=== PATIENT | female | born 1930 | race Caucasian/White ===

== ENCOUNTER 2019-01-23 19:22 | Inpatient (IN) | payer OTHER, MEDICARE ==
--- NOTE | 2019-01-23 21:01 | RAD REPORT ---
EXAM DESCRIPTION: CT - Head C Spine Cap Wo Con - 01/23/2019 8:35 pm TECHNIQUE: Computed axial tomography of the head and cervical spine was obtained. Coronal and sagitt al reconstruction was performed Computed axial tomography of the chest, abdomen and pelvis was obtained. Contrast was not requested. All CT scans are performed using dose optimization technique as appropriate and may include automated exposure control or mA/KV adjustment according to patient size. CLINICAL HISTORY: Head and neck injury with chest and abdominal pain status post fall COMPARISON: None FINDINGS: An intracranial bleed is not seen. A 3.5 centimeter low-density area within the left frontal lobe has the appearance of cystic encephalomalacia probably secondary to old infarction. The ventricles are normal in caliber. An extra-axial fluid collection is not noted. . Spondylosis inv olves the cervical spine Fluid within the sinuses/mastoids is not seen. A cervical fracture is not seen. No dislocation is noted. The evaluation of mediastinum, ralph, vessels, solid organs and bowel are limited secondary to the lac k of contrast administration. A mediastinal hematoma is not noted. A pleural effusion is not seen. A lung contusion is not present. The liver,spleen, pancreas, adrenals,kidneys and bladder do not demonstrate a traumatic injury. IMPRESSION: 1. No acute intracranial abnormality is seen. 2. A cervical fracture is not visualized. If the patient continues have symptoms to suggest intracran ial/spinal cord pathology MRI be recommended 3. No traumatic abnormality involving the chest/abdomen/pelvis.
[2019-01-23] MEDS ORDERED: NA CHLORIDE 0.9% 1,000 ML ONE (21:20)
[2019-01-23] MEDS ORDERED: CEFTRIAXONE/SWI 1gm 1 GM/10 ML SYR ONE (21:20)
--- NOTE | 2019-01-23 21:44 | ER ---
Nurse's Notes [facility] Name: Cheri Swift Age: 88 yrs Sex: Female : 1930 Arrival Date: 01/23/2019 Time: 19:23 Bed 18 Private MD: Diagnosis: Weakness;Fall due to bumping against object-found on floor;Dementia in other diseases classified elsewhere;Fever, unspecified;Unspecified kidney failure;Cystitis Presentation: 01/23 19:26 Presenting complaint: EMS states: Pt from [facility], nurse found patient on the floor of tl2 her room. Pt was awake and does not remember falling. Denies pain, but winces when using left leg. Unknown LOC. Pt AOx2, which is baseline. Transition of care: patient was received from another setting of care (long-term care facility), formerly [facility]. Onset of symptoms was January 23, 2019. Risk Assessment: Do you want to hurt yourself or someone else? Patient reports no desire to harm self or others. Initial Sepsis Screen: Does the patient meet any 2 criteria? HR > 90 bpm. No. Patient's initial sepsis screen is negative. Does the patient have a suspected source of infection? No. Patient's initial sepsis screen is negative. Care prior to arrival: None. 19:26 Method Of Arrival: EMS: [facility] tl2 19:26 Acuity: ALFREDO 3 tl2 Historical: - Allergies: 19:35 ambien; tl2 19:35 Bactrim; tl2 19:35 duratuss; tl2 19:35 Lamisil; tl2 19:35 Lisinopril; tl2 19:35 metformin; tl2 19:35 Requip; tl2 19:35 Sulfa (Sulfonamide Antibiotics); tl2 19:35 Zithromax; tl2 19:35 Vitamin D; tl2 - Home Meds: 19:35 aspirin 81 mg Oral chew 1 tab once daily [Active]; clopidogrel 75 mg oral tab 1 tab tl2 once daily [Active]; docusate calcium 240 mg Oral cap 1 cap 2 times per day [Active]; furosemide 20 mg Oral tab 1 tab once daily [Active]; lovastatin 20 mg Oral tab 1 tab once daily [Active]; meclizine 25 mg Oral tab 1 tab 2 times per day [Active]; metoprolol succinate 50 mg oral Tb24 1 tab once daily [Active]; potassium chloride 10 mEq Oral cpER 1 cap once daily [Active]; Vesicare 10 mg oral tab 1 tab once daily [Active]; - PMHx: 19:35 Dementia; TIA; Diabetes - NIDDM; kidney disease; tl2 - Immunization history:: Adult Immunizations up to date. - Social history:: Smoking status: Patient/guardian denies using tobacco. - Ebola Screening: : No symptoms or risks identified at this time. Screenin:37 Abuse screen: Denies threats or abuse. Nutritional screening: No deficits noted. tl2 Tuberculosis screening: No symptoms or risk factors identified. Fall Risk Fall in past 12 months (25 points). Secondary diagnosis (15 points) dementia, TIA, Gait- Weak (10 pts.). Mental Status- Overestimates/Forgets Limitations (15 pts.). Assessment: 19:35 General: Appears in no apparent distress. comfortable, Behavior is calm, cooperative. tl2 Pain: Complains of pain in left leg. Neuro: Level of Consciousness is awake, alert, confused, Oriented to person, place. Cardiovascular: Denies chest pain. Respiratory: Airway is patent Respiratory effort is even, unlabored, Respiratory pattern is regular, symmetrical. GI: No signs and/or symptoms were reported involving the gastrointestinal system. Abdomen is round distended. : No signs and/or symptoms were reported regarding the genitourinary system. Derm: Skin is pink, warm \T\ dry. Injury Description: Bruise sustained to left tovar. 20:15 Reassessment: awaiting lab to draw blood tests, delayed by imaging. tl2 21:00 Reassessment: Patient appears in no apparent distress at this time. No changes from tl2 previously documented assessment. Patient and/or family updated on plan of care and expected duration. Pain level reassessed. 22:11 Reassessment: Patient appears in no apparent distress at this time. Patient and/or tl2 family updated on plan of care and expected duration. Pain level reassessed. awaiting further orders and lab results. 23:19 Reassessment: awaiting admission orders, pt appears to be sleeping, RR even and tl2 unlabored. 01/24 00:59 Reassessment: Patient appears in no apparent distress at this time. Patient and/or tl2 family updated on plan of care and expected duration. Pain level reassessed. pt stable for transport to floor. Vital Signs: 01/23 19:35 BP 145 / 72; Pulse 103; Resp 18; Temp 100.1(O); Pulse Ox 98% on R/A; Weight 72.57 kg; tl2 Height 5 ft. 4 in. (162.56 cm); Pain 0/10; 21:20 BP 160 / 88; Pulse 102; Resp 20; Temp 99(O); Pulse Ox 95% on R/A; tl2 23:12 BP 142 / 80; Pulse 84; Resp 20; Pulse Ox 98% on R/A; tl2 23:57 BP 140 / 106; Pulse 104; Resp 20; Temp 98.6(O); Pulse Ox 96% on R/A; tl2 01/24 00:59 BP 135 / 75; Pulse 94; Resp 20; Pulse Ox 95% on R/A; tl2 01/23 19:35 Body Mass Index 27.46 (72.57 kg, 162.56 cm) tl2 ED Course: 01/23 19:23 Patient arrived in ED. ds1 19:27 Triage completed. tl2 19:35 Arm band placed on right wrist. tl2 19:37 Jose Hilton MD is Attending Physician. aura 19:37 Patient has correct armband on for positive identification. Bed in low position. Call tl2 light in reach. Side rails up X2. 19:59 Inserted saline lock: 22 gauge in right forearm, using aseptic technique. tl2 20:[address] via stretcher. vm2 20:32 CT completed. Patient tolerated procedure well. Patient moved back from CT. vm2 20:35 CT Traumagram (Head C Spine CAP wo con) In Process Unspecified. EDMS 20:36 Ami Osborne, RN is Primary Nurse. tl2 21:12 XRAY Chest (1 view) In Process Unspecified. EDMS 21:12 Femur Left XRAY In Process Unspecified. EDMS 21:12 Tib Fib Left XRAY In Process Unspecified. EDMS 21:42 Willian Simmons MD is Hospitalizing Provider. aura 21:55 Camarena cath inserted, using sterile technique, 16 Fr., by de, balloon inflated, to tl2 gravity drainage, urine specimen collected. returned cloudy urine. Patient tolerated well. 22:28 Flu Sent. tl2 01/24 00:59 No provider procedures requiring assistance completed. Patient admitted, IV remains in tl2 place. Administered Medications: 01/23 21:51 Drug: NS 0.9% 500 ml Route: IV; Rate: bolus; Site: right forearm; tl2 22:22 Follow up: IV Status: Completed infusion; IV Intake: 500ml tl2 21:51 Drug: Rocephin - (cefTRIAXone) 1 grams Route: IVPB; Infused Over: 30 mins; Site: right tl2 forearm; 22:00 Follow up: IV Status: Completed infusion; IV Intake: 10ml tl2 22:21 Drug: NS 0.9% 1000 ml Route: IV; Rate: 125 ml/hr; Site: right forearm; tl2 01/24 01:01 Follow up: IV Status: Infusion continued upon admission tl2 Intake: 01/23 22:00 IV: 10ml; Total: 10ml. tl2 22:22 IV: 500ml; Total: 510ml. tl2 Outcome: 21:43 Decision to Hospitalize by Provider. aura 01/24 00:59 Admitted to Med/surg accompanied by tech, via stretcher, room 211, with chart, Report tl2 called to JOHNNIE De La Cruz Condition: stable Discharge instructions given to patient, family, Instructed on the need for admit. 01:02 Patient left the ED. tl2 Signatures: Dispatcher [employer] EDJose Bradley MD MD cha Sanford, Demi ds1 Ami Osborne RN RN 2 Anna Chou 2 Corrections: (The following items were deleted from the chart) 01/23 19:29 19:26 Initial Sepsis Screen: Does the patient meet any 2 criteria? No. Patient's tl2 initial sepsis screen is negative. Does the patient have a suspected source of infection? No. Patient's initial sepsis screen is negative. tl2
--- NOTE | 2019-01-23 21:44 | RAD REPORT ---
EXAM DESCRIPTION: RAD - Chest Single View - 01/23/2019 9:12 pm CLINICAL HISTORY: COUGH Chest pain. COMPARISON: No comparisons FINDINGS: Portable technique limits examination quality. The lungs are grossly clear. The heart is normal in size. No displaced fractures. IMPRESSION: No acute intrathoracic process suspected.
--- NOTE | 2019-01-23 21:44 | EDPHYS ---
Physician Documentation [facility] Name: Cheri Swift Age: 88 yrs Sex: Female : 1930 Arrival Date: 01/23/2019 Time: 19:23 Bed 18 Private MD: ED Physician Jose Hilton HPI: 01/23 20:15 This 88 yrs old Female presents to ER via EMS with complaints of Fall Injury. aura 20:15 Details of fall: The patient fell from an upright position, while standing. Onset: The aura symptoms/episode began/occurred just prior to arrival. Associated injuries: The patient sustained left leg, painful injury. Severity of symptoms: At their worst the symptoms were mild, in the emergency department the symptoms are unchanged. Historical: - Allergies: 19:35 ambien; tl2 19:35 Bactrim; tl2 19:35 duratuss; tl2 19:35 Lamisil; tl2 19:35 Lisinopril; tl2 19:35 metformin; tl2 19:35 Requip; tl2 19:35 Sulfa (Sulfonamide Antibiotics); tl2 19:35 Zithromax; tl2 19:35 Vitamin D; tl2 - Home Meds: 19:35 aspirin 81 mg Oral chew 1 tab once daily [Active]; clopidogrel 75 mg oral tab 1 tab tl2 once daily [Active]; docusate calcium 240 mg Oral cap 1 cap 2 times per day [Active]; furosemide 20 mg Oral tab 1 tab once daily [Active]; lovastatin 20 mg Oral tab 1 tab once daily [Active]; meclizine 25 mg Oral tab 1 tab 2 times per day [Active]; metoprolol succinate 50 mg oral Tb24 1 tab once daily [Active]; potassium chloride 10 mEq Oral cpER 1 cap once daily [Active]; Vesicare 10 mg oral tab 1 tab once daily [Active]; - PMHx: 19:35 Dementia; TIA; Diabetes - NIDDM; kidney disease; tl2 - Immunization history:: Adult Immunizations up to date. - Social history:: Smoking status: Patient/guardian denies using tobacco. - Ebola Screening: : No symptoms or risks identified at this time. ROS: 20:16 Eyes: Negative for injury, pain, redness, and discharge, ENT: Negative for injury, aura pain, and discharge, Neck: Negative for injury, pain, and swelling, Cardiovascular: Negative for chest pain, palpitations, and edema, Respiratory: Negative for shortness of breath, cough, wheezing, and pleuritic chest pain, Abdomen/GI: Negative for abdominal pain, nausea, vomiting, diarrhea, and constipation, Back: Negative for injury and pain, : Negative for injury, bleeding, discharge, and swelling, Skin: Negative for injury, rash, and discoloration, Neuro: Negative for headache, weakness, numbness, tingling, and seizure, Psych: Negative for depression, anxiety, suicide ideation, homicidal ideation, and hallucinations, Allergy/Immunology: Negative for hives, rash, and allergies, Endocrine: Negative for neck swelling, polydipsia, polyuria, polyphagia, and marked weight changes, Hematologic/Lymphatic: Negative for swollen nodes, abnormal bleeding, and unusual bruising. 20:16 Constitutional: Positive for fever. 20:16 MS/extremity: Positive for decreased range of motion, pain, of the left leg. Exam: 20:16 Constitutional: This is a well developed, well nourished patient who is awake, alert, aura and in no acute distress. Head/Face: Normocephalic, atraumatic. Eyes: Pupils equal round and reactive to light, extra-ocular motions intact. Lids and lashes normal. Conjunctiva and sclera are non-icteric and not injected. Cornea within normal limits. Periorbital areas with no swelling, redness, or edema. ENT: Nares patent. No nasal discharge, no septal abnormalities noted. Tympanic membranes are normal and external auditory canals are clear. Oropharynx with no redness, swelling, or masses, exudates, or evidence of obstruction, uvula midline. Mucous membranes moist. Neck: Trachea midline, no thyromegaly or masses palpated, and no cervical lymphadenopathy. Supple, full range of motion without nuchal rigidity, or vertebral point tenderness. No Meningismus. Chest/axilla: Normal chest wall appearance and motion. Nontender with no deformity. No lesions are appreciated. Cardiovascular: Regular rate and rhythm with a normal S1 and S2. No gallops, murmurs, or rubs. Normal PMI, no JVD. No pulse deficits. Respiratory: Lungs have equal breath sounds bilaterally, clear to auscultation and percussion. No rales, rhonchi or wheezes noted. No increased work of breathing, no retractions or nasal flaring. Abdomen/GI: Soft, non-tender, with normal bowel sounds. No distension or tympany. No guarding or rebound. No evidence of tenderness throughout. Back: No spinal tenderness. No costovertebral tenderness. Full range of motion. Skin: Warm, dry with normal turgor. Normal color with no rashes, no lesions, and no evidence of cellulitis. Neuro: Awake and alert, GCS 15, oriented to person, place, time, and situation. Cranial nerves II-XII grossly intact. Motor strength 5/5 in all extremities. Sensory grossly intact. Cerebellar exam normal. Normal gait. Psych: Awake, alert, with orientation to person, place and time. Behavior, mood, and affect are within normal limits. 20:16 Musculoskeletal/extremity: ROM: limited active range of motion, limited passive range of motion, Circulation is intact in all extremities. Sensation intact. Compartment Syndrome exam of affected extremity: is normal. Weight bearing: is unable to bear weight, DVT Exam: no swelling, no tenderness, negative Homans' sign noted on exam, no appreciated bluish discoloration, no erythema, no increased warmth, pain. Vital Signs: 19:35 BP 145 / 72; Pulse 103; Resp 18; Temp 100.1(O); Pulse Ox 98% on R/A; Weight 72.57 kg; tl2 Height 5 ft. 4 in. (162.56 cm); Pain 0/10; 21:20 BP 160 / 88; Pulse 102; Resp 20; Temp 99(O); Pulse Ox 95% on R/A; tl2 23:12 BP 142 / 80; Pulse 84; Resp 20; Pulse Ox 98% on R/A; tl2 23:57 BP 140 / 106; Pulse 104; Resp 20; Temp 98.6(O); Pulse Ox 96% on R/A; tl2 01/24 00:59 BP 135 / 75; Pulse 94; Resp 20; Pulse Ox 95% on R/A; tl2 01/23 19:35 Body Mass Index 27.46 (72.57 kg, 162.56 cm) tl2 MDM: 01/23 19:37 Patient medically screened. [facility] 20:18 Data reviewed: vital signs, nurses notes, lab test result(s), EKG, radiologic studies, [facility] CT scan, plain films. 01/23 20:14 Order name: Basic Metabolic Panel [facility] 01/23 20:14 Order name: CBC with Diff [facility] 01/23 20:14 Order name: LFT's [facility] 01/23 20:14 Order name: Magnesium [facility] 01/23 20:14 Order name: NT PRO-BNP [facility] 01/23 20:14 Order name: PT-INR; Complete Time: 22:23 [facility] 01/23 20:14 Order name: Troponin (emerg Dept Use Only) [facility] 01/23 20:14 Order name: Lipase [facility] 01/23 20:14 Order name: Urine Culture [facility] 01/23 20:14 Order name: Blood Culture Adult (2) [facility] 01/23 20:14 Order name: Procalcitonin [facility] 01/23 20:14 Order name: Lactate; Complete Time: 22:23 [facility] 01/23 20:14 Order name: Basic Metabolic Panel [facility] 01/23 20:14 Order name: CBC with Automated Diff [facility] 01/23 20:14 Order name: XRAY Chest (1 view); Complete Time: 22:23 [facility] 01/23 20:14 Order name: EKG; Complete Time: 20:15 [facility] 01/23 20:14 Order name: CT Traumagram (Head C Spine CAP wo con); Complete Time: 21:36 [facility] 01/23 20:14 Order name: Femur Left XRAY; Complete Time: 22:23 [facility] 01/23 20:14 Order name: Tib Fib Left XRAY; Complete Time: 22:23 [facility] 01/23 20:14 Order name: Liver (Hepatic) Function [facility] 01/23 21:37 Order name: Flu [facility] 01/23 22:11 Order name: Urine Dipstick--Ancillary (enter results); Complete Time: 22:23 [facility] 01/23 22:20 Order name: Creatine Phosphokinase [facility] 01/23 22:20 Order name: CKMB Creatine Kinase MB [facility] 01/23 23:03 Order name: CBC Smear Scan [facility] 01/23 20:14 Order name: Cardiac monitoring; Complete Time: 20:37 [facility] 01/23 20:14 Order name: EKG - Nurse/Tech; Complete Time: 20:38 [facility] 01/23 20:14 Order name: IV Saline Lock; Complete Time: 20:38 [facility] 01/23 20:14 Order name: Labs collected and sent; Complete Time: 21:52 [facility] 01/23 20:14 Order name: O2 Per Protocol; Complete Time: 20:38 [facility] 01/23 20:14 Order name: O2 Sat Monitoring; Complete Time: 20:38 [facility] 01/23 20:14 Order name: Urine Dipstick-Ancillary (obtain specimen); Complete Time: 21:52 [facility] 01/23 21:11 Order name: Camarena; Complete Time: 21:51 [facility] Administered Medications: 21:51 Drug: NS 0.9% 500 ml Route: IV; Rate: bolus; Site: right forearm; tl2 22:22 Follow up: IV Status: Completed infusion; IV Intake: 500ml tl2 21:51 Drug: Rocephin - (cefTRIAXone) 1 grams Route: IVPB; Infused Over: 30 mins; Site: right tl2 forearm; 22:00 Follow up: IV Status: Completed infusion; IV Intake: 10ml tl2 22:21 Drug: NS 0.9% 1000 ml Route: IV; Rate: 125 ml/hr; Site: right forearm; tl2 01/24 01:01 Follow up: IV Status: Infusion continued upon admission tl2 Disposition: 01/23/19 21:43 Hospitalization ordered by Willian Simmons for Inpatient Admission. Preliminary diagnosis are Weakness, Fall due to bumping against object - found on floor, Dementia in other diseases classified elsewhere, Fever, unspecified, Unspecified kidney failure, Cystitis. - Bed requested for Telemetry/MedSurg (Inpatient). - Status is Inpatient Admission. tl2 - Condition is Fair. - Problem is new. - Symptoms have improved. UTI on Admission? Yes Signatures: Dispatcher [employer] EDIA Jose Hilton MD MD cha Garcia, Cindy, RN RN Ami Osborne RN RN tl2 Corrections: (The following items were deleted from the chart) 01/23 22:20 21:42 CREATINE PHOSPHOKINASE+C.LAB.BRZ ordered. [facility] EDIA 22:20 21:42 CKMB+C.LAB.BRZ ordered. [facility] 22:24 21:43 Hospitalization Ordered by Willian Simmons MD for Inpatient Admission. Preliminary [facility] diagnosis is Weakness; Fall due to bumping against object - found on floor; Dementia in other diseases classified elsewhere; Fever, unspecified. Bed requested for Telemetry/MedSurg (Inpatient). Status is Inpatient Admission. Condition is Fair. Problem is new. Symptoms have improved. UTI on Admission? No. [facility] 23:46 22:24 01/23/2019 21:43 Hospitalization Ordered by Willian Simmons MD for Inpatient cg Admission. Preliminary diagnosis is Weakness; Fall due to bumping against object - found on floor; Dementia in other diseases classified elsewhere; Fever, unspecified; Unspecified kidney failure; Cystitis. Bed requested for Telemetry/MedSurg (Inpatient). Status is Inpatient Admission. Condition is Fair. Problem is new. Symptoms have improved. UTI on Admission? Yes. [facility] 01/24 01:02 05/ 23:46 01/23/2019 21:43 Hospitalization Ordered by Willian Smimons MD for Inpatient tl2 Admission. Preliminary diagnosis is Weakness; Fall due to bumping against object - found on floor; Dementia in other diseases classified elsewhere; Fever, unspecified; Unspecified kidney failure; Cystitis. Bed requested for Telemetry/MedSurg (Inpatient). Status is Inpatient Admission. Condition is Fair. Problem is new. Symptoms have improved. UTI on Admission? Yes. cg
--- NOTE | 2019-01-23 21:44 | RAD REPORT ---
EXAM DESCRIPTION: RAD - Femur Left - 01/23/2019 9:13 pm CLINICAL HISTORY: PAIN COMPARISON: No comparisons FINDINGS: Prominent degenerative changes seen involving the left hip. No evidence of fracture or dis location. No aggressive marrow pattern.
--- NOTE | 2019-01-23 21:45 | RAD REPORT ---
EXAM DESCRIPTION: RAD - Tib Fib Left - 01/23/2019 9:14 pm CLINICAL HISTORY: PAIN COMPARISON: No comparisons FINDINGS: An acute fracture or dislocation is not seen. Small left knee joint effusion.
[2019-01-23 21:47] LABS: Absolute Lymphocytes (CBC) 0.8 K/uL (0.7-4.9); Absolute Monocytes 0.7 K/uL (0.1-1.3); Absolute Neutrophil 9.3 K/uL (1.8-8.0); Basophils % 0.3 % (0-1.3); Eosinophils % 0.2 % (0-4.4); Hematocrit 34.4 % (36.0-45.0); Monocytes % 6.4 % (3.3-12.3); RBC Red Blood Cell Count 3.55 M/uL (3.86-4.86)
[2019-01-23 21:51] LABS: Protime INR 1.01
[2019-01-23 22:08] LABS: ALT/SGPT 44 U/L (12-78); AST/SGOT 120 U/L (15-37); Albumin 3.3 g/dL (3.4-5.0); Alkaline Phosphatase 79 U/L (45-117); BUN Blood Urea Nitrogen 29 mg/dL (7-18); Bicarbonate 25 mmol/L (21-32); Bilirubin Direct < 0.1 mg/dL (0-0.2); Bilirubin Total 0.3 mg/dL (0.2-1.0); Glucose Level 207 mg/dL (74-106); Lipase 76 U/L (73-393); Magnesium 2.2 mg/dL (1.8-2.4); NT PRO-BNP 3043 pg/mL (<450); Protein, Total 7.4 g/dL (6.4-8.2); Sodium Level 131 mmol/L (136-145); Troponin (Emerg Dept Use Only) 0.11 ng/mL (0.0-0.045)
[2019-01-23 22:17] LABS: Urine Blood 2+ (NEG); Urine Glucose 2+ (NEG); Urine Protein 1+ (NEG)
[2019-01-23 22:54] LABS: Creatine Phosphokinase 4079 U/L (26-192)
[2019-01-23 23:03] LABS: Blood Morphology Comment NOT SEEN (NOT SEEN); Platelet Estimate ADEQ; Urine White Blood Cell Casts OK
--- NOTE | 2019-01-23 23:05 | P.HP ---
Certification for Inpatient Patient admitted to: Inpatient With expected LOS: >2 Midnights Practitioner: I am a practitioner with admitting privileges, knowledge of patient current condition, hospital course, and medical plan of care. Services: Services provided to patient in accordance with Admission requirements found in Title 42 Section 412.3 of the Code of Federal Regulations Patient History Date of Service: 01/23/19 Reason for admission: UTI, fall History of Present Illness: Ms Swift is an 88 years old woman with history of dementia, HTN, DM II, who is resident of an assisted living facility. She was found on the floor by the nurse. Unknown if the patient had LOC. She was febrile, and was more confused than usual. The patient does not remember falling today, No cough, SOB, chest pain, nausea, vomiting or diarrhea. At arrival she was febrile 100.1F, Lab work shows normal WBC count, however, total CK is elevated, consistent with mild rhabdomyolisis, lactate normal but procalcitonine elevated. CXR shows no acute infiltrate, UA abnormal consistent with UTI. Home medications list reviewed: Yes - Past Medical/Surgical History -: Dementia -: TIA -: NIDDM Past Surgical History: Reviewed- Non-Contributory - Social History Smoking Status: Unknown if ever smoked Alcohol use: No CD- Drugs: No Place of Residence: [facility] Review of Systems 10-point ROS is otherwise unremarkable Physical Examination - Physical Exam General: In no apparent distress, Demented, Confused HEENT: Atraumatic, PERRLA, Mucous membr. moist/pink, EOMI, Sclerae nonicteric Neck: Supple, 2+ carotid pulse no bruit, No LAD, Without JVD or thyroid abnormality Respiratory: Clear to auscultation bilaterally, Normal air movement Cardiovascular: Regular rate/rhythm, Normal S1 S2 Gastrointestinal: Normal bowel sounds, No tenderness Musculoskeletal: No tenderness Integumentary: No rashes Neurological: Normal speech, Normal strength at 5/5 x4 extr, Normal tone, Normal affect Lymphatics: No axilla or inguinal lymphadenopathy - Studies Laboratory Data (last 24 hrs) 01/23/19 21:29: PT 11.9, INR 1.01 01/23/19 21:29: WBC 10.8, Hgb 11.7 L, Hct 34.4 L, Plt Count 192 01/23/19 21:29: Sodium 131 L, Potassium 4.0, BUN 29 H, Creatinine 1.79 H, Glucose 207 H, Magnesium 2.2, Total Bilirubin 0.3, AST 120 H, ALT 44, Alkaline Phosphatase 79, Lipase 76 Microbiology Data (last 24 hrs): 01/23/19 21:58 Nasopharnyx Influenza Type A Antigen Screen - Final 01/23/19 21:58 Nasopharnyx Influenza Type B Antigen Screen - Final Assessment and Plan - Problems (Diagnosis) (1) Acute encephalopathy Current Visit: Yes Status: Acute (2) UTI (urinary tract infection) Current Visit: Yes Status: Acute Qualifiers: Urinary tract infection type: acute cystitis Hematuria presence: without hematuria Qualified Code(s): N30.00 - Acute cystitis without hematuria (3) Dementia Current Visit: Yes Status: Acute Qualifiers: Dementia type: Alzheimer's disease Alzheimer's disease onset: unspecified onset Dementia behavioral disturbance: without behavioral disturbance Qualified Code(s): G30.9 - Alzheimer's disease, unspecified; F02.80 - Dementia in other diseases classified elsewhere without behavioral disturbance (4) HTN (hypertension) Current Visit: Yes Status: Acute Qualifiers: Hypertension type: essential hypertension Qualified Code(s): I10 - Essential (primary) hypertension (5) Diabetes mellitus Current Visit: Yes Status: Acute Qualifiers: Diabetes mellitus type: type 2 Diabetes mellitus care home insulin use: with serology technician use Diabetes mellitus complication status: with unspecified complications Qualified Code(s): E11.8 - Type 2 diabetes mellitus with unspecified complications; Z79.4 - jail (current) use of insulin (6) Rhabdomyolysis Current Visit: Yes Status: Acute Qualifiers: Rhabdomyolysis type: traumatic Encounter type: initial encounter Qualified Code(s): T79.6XXA - Traumatic ischemia of muscle, initial encounter - Plan The patietnt will be admitted to the hospital due to acute encephalopathy, fall , UTI, and rhabdo. Will continue with IV fluids, empiric treatment with Rocephin. - Advance Directives Does patient have a Living Will: No Does patient have a Durable POA for Healthcare: No - Code Status/Comfort Care Code Status Assessed: Yes Code Status: Full Code
[2019-01-24] MEDS ORDERED: ONDANSETRON 4 MG/2 ML VIAL IV PRN (00:21)
[2019-01-24] MEDS ORDERED: ACETAMINOPHEN 500 MG TAB PO PRN (00:21)
[2019-01-24] MEDS: NA CHLORIDE 0.9% 1,000 ML IV SCH ×4 (01:11→21:51)
[2019-01-24 01:25] VITALS: BMI 24.5
[2019-01-24 06:35] LABS: Absolute Lymphocytes (CBC) 1.6 K/uL (0.7-4.9); Absolute Neutrophil 7.7 K/uL (1.8-8.0); Basophils % 0.6 % (0-1.3); Eosinophils % 0.3 % (0-4.4); Hematocrit 33.1 % (36.0-45.0); MPV 7.9 fL (7.6-11.3); Monocytes % 9.8 % (3.3-12.3); RBC Red Blood Cell Count 3.39 M/uL (3.86-4.86)
[2019-01-24 06:36] LABS: Potassium 4.6 mmol/L (3.5-5.1)
--- NOTE | 2019-01-24 07:13 | EKG ---
Test Date: 2019-01-23 Test Time: 20:00:20 Marketing Sales Representative: JOE MEASUREMENT RESULTS: Intervals: Rate: 104 OR: 138 QRSD: 80 QT: 338 QTc: 444 [place]: P: 85 OR: 138 QRS: 36 T: 83 INTERPRETIVE STATEMENTS: Sinus tachycardia Otherwise normal ECG No previous ECG available for comparison Electronically Signed On 01-24-19 07:12:23 CDT by Don Long
[2019-01-24] MEDS ORDERED: PNEUMOCOCCAL VACCINE 0.5 ML IMVAC ONE (08:00)
[2019-01-24] MEDS ORDERED: CEFTRIAXONE 1 GM/NS 50 ML 1 GM/50 ML BAG IV SCH (09:00)
[2019-01-24] MEDS ORDERED: MECLIZINE HCL 12.5 MG TAB PO PRN (09:00)
[2019-01-24] MEDS: INSULIN -REGULAR HUMAN 50 UNIT/0.5 ML ML SQ SCH ×4 (09:26→21:46)
[2019-01-24] MEDS: CEFTRIAXONE/SWI 1gm 1 GM/10 ML SYR IV SCH (09:27)
[2019-01-24] MEDS: DOCUSATE NA 100 MG CAP PO SCH (09:27)
[2019-01-24] MEDS: SOLIFENACIN SUCCIN 5 MG TAB PO SCH (09:27)
[2019-01-24] MEDS: METOPROLOL XL 50 MG TAB PO SCH (09:28)
[2019-01-24] MEDS: CLOPIDOGREL 75 MG TABLET PO SCH (09:28)
[2019-01-24] MEDS: VITAMIN D 1000 UNIT TAB PO SCH (09:28)
[2019-01-24] MEDS: ASPIRIN EC 81 MG TAB PO SCH (09:28)
[2019-01-24] MEDS: POLYVINYL ALCOHOL 1.4% 15 ML OPTH SCH ×2 (09:30→21:49)
--- NOTE | 2019-01-24 13:23 | P.CNS ---
Date of Consult: 01/24/19 Reason for Consult: CORINE Chief Complaint: UTI, fall History of Present Illness: pt is unable to provide detailed Hx, Hx obtained from chart An 88 years old woman with history of dementia, HTN, DM II, pt sent from assisted living facility after she was found on the ground unknown if lost consciouss no nausea vomiting , diarrhea or constipation, chest pain or palpitation Allergies azithromycin [From Zithromax] Allergy (Verified 01/24/19 00:20) Hives cholecalciferol (vitamin D3) [From Vitamin D3] Allergy (Verified 01/24/19 00:20) Itching dextromethorphan Allergy (Verified 01/24/19 03:00) Itching/Hives/Rash guaifenesin Allergy (Verified 01/24/19 03:00) Itching/Hives/Rash hydrocodone Allergy (Verified 01/24/19 03:00) Itching/Hives/Rash lisinopril Allergy (Verified 01/24/19 00:20) Anaphylaxis metformin Allergy (Verified 01/24/19 00:20) Hives ropinirole [From Requip] Allergy (Verified 01/24/19 00:20) Hives Sulfa (Sulfonamide Antibiotics) Allergy (Verified 01/24/19 00:20) Hives sulfamethoxazole [From Bactrim] Allergy (Verified 01/24/19 00:20) Hives terbinafine [From Lamisil] Allergy (Verified 01/24/19 00:20) Hives trimethoprim [From Bactrim] Allergy (Verified 01/24/19 00:20) Hives zolpidem [From Ambien] Allergy (Verified 01/24/19 00:20) Hives duratuss Allergy (Uncoded 01/24/19 00:20) Hives Home Medications: Acetaminophen 1 tab PO QID PRN 01/24/19 Aspirin [Aspirin EC 81 MG] 1 tab PO DAILY 01/24/19 Carboxymethylcellulos/Glycerin [Refresh Optive Eye Drops] 1 drop EACH EYE BID Cholecalciferol (Vitamin D3) [Vitamin D3] 1 cap PO DAILY 01/24/19 Clopidogrel Bisulfate [Plavix*] 1 tab PO DAILY 01/24/19 Docusate Calcium 240 mg PO BID 01/24/19 Furosemide [Lasix*] 1 tab PO DAILY 01/24/19 Lovastatin 1 tab PO DAILY 01/24/19 Meclizine HCl 1 tab PO BID 01/24/19 Metoprolol Succinate 1 tab PO DAILY 01/24/19 Potassium Chloride 1 tab PO DAILY 01/24/19 Solifenacin Succinate [Vesicare] 10 mg PO DAILY 01/24/19 - Past Medical/Surgical History Diabetic: Yes -: Dementia -: TIA -: NIDDM -: CKD ST 3 -: RLS -: ANEMIA -: CEREBRAL ATHEROSCLEROSIS -: HTN -: MIXED HLD -: CORONARY ATHEROSCLEROSIS -: CVA - Social History Alcohol use: No CD- Drugs: No Caffeine use: No Place of Residence: Intermediate Physical Examination Temp Pulse Resp BP Pulse Ox 97.7 F 95 H 17 120/59 L 96 01/24/19 12:00 01/24/19 12:00 01/24/19 12:00 01/24/19 12:00 01/24/19 12:00 General: In no apparent distress HEENT: Atraumatic, Other (Dry mouth ) Respiratory: Clear to auscultation bilaterally, Normal air movement Cardiovascular: No edema, Regular rate/rhythm, Normal S1 S2 Gastrointestinal: Normal bowel sounds, Soft and benign Integumentary: No rashes Laboratory Data (last 24 hrs) 01/23/19 21:29: PT 11.9, INR 1.01 01/23/19 21:29: WBC 10.8, Hgb 11.7 L, Hct 34.4 L, Plt Count 192 01/23/19 21:29: Sodium 131 L, Potassium 4.0, BUN 29 H, Creatinine 1.79 H, Glucose 207 H, Magnesium 2.2, Total Bilirubin 0.3, AST 120 H, ALT 44, Alkaline Phosphatase 79, Lipase 76 - Problems (1) CORINE (acute kidney injury) Current Visit: Yes Status: Acute (2) Rhabdomyolysis Current Visit: Yes Status: Acute Qualifiers: Rhabdomyolysis type: traumatic Encounter type: initial encounter Qualified Code(s): T79.6XXA - Traumatic ischemia of muscle, initial encounter (3) UTI (urinary tract infection) Current Visit: Yes Status: Acute Qualifiers: Urinary tract infection type: acute cystitis Hematuria presence: without hematuria Qualified Code(s): N30.00 - Acute cystitis without hematuria Conclusions/Impression: CORINE likely due to poor oral intake +/_ diuresis +/- rhabdo improved on IVF UA +1 prot and Bld will order renal U S previous W/u RISHI, ANCA , RPR -ve cont IVF rhabdo Cont IVF Dementia will order TSH and b12 DM as per PCP HTN controlled UTI cont Abx f/u culture results
--- NOTE | 2019-01-24 13:33 | P.PN ---
Subjective Date of Service: 01/24/19 Primary Care Provider: [facility] Chief Complaint: UTI, fall Subjective: Doing well, Demented Physical Examination - Vital Signs Temperature: 97.7 F Blood Pressure: 120/59 Pulse: 95 Respirations: 17 Pulse Ox (%): 96 - Physical Exam General: Alert, In no apparent distress, Demented HEENT: Atraumatic Neck: Supple Respiratory: Clear to auscultation bilaterally, Normal air movement Cardiovascular: Normal pulses, Regular rate/rhythm Gastrointestinal: Normal bowel sounds, Soft and benign, Non-distended Musculoskeletal: No erythema, No tenderness, No warmth Neurological: Normal speech, Normal strength at 5/5 x4 extr, Normal tone, Normal affect - Studies Laboratory Data (last 24 hrs) 01/23/19 21:29: PT 11.9, INR 1.01 01/23/19 21:29: WBC 10.8, Hgb 11.7 L, Hct 34.4 L, Plt Count 192 01/23/19 21:29: Sodium 131 L, Potassium 4.0, BUN 29 H, Creatinine 1.79 H, Glucose 207 H, Magnesium 2.2, Total Bilirubin 0.3, AST 120 H, ALT 44, Alkaline Phosphatase 79, Lipase 76 Microbiology Data (last 24 hrs): 01/23/19 21:29 Blood - Blood Anaerobic Blood Culture - Final 01/23/19 21:35 Blood - Blood Anaerobic Blood Culture - Final 01/23/19 21:58 Nasopharnyx Influenza Type A Antigen Screen - Final 01/23/19 21:58 Nasopharnyx Influenza Type B Antigen Screen - Final Medications List Reviewed: Yes Assessment & Plan Discharge Plan: Other (Assisted living facility) Plan to discharge in: 48 Hours Physician Review Additional Text: Impression: UTI complicated with acute on chronic renal disease with rhabdomyolysis Fall with rhabdomyolysis Diabetes mellitus type 2 Hypertension Dementia History of TIA Hyperlipidemia Plan: UTI complicated with acute on chronic renal disease with rhabdomyolysis: Continue with IV fluids. Will check renal ultrasound. Nephrology consulted. Urine culture and blood culture pending. Await final results. Will have physical therapy assess ambulation. Anticipate discharge in the next 48 hr back to assisted living or skilled placement. Fall with rhabdomyolysis: Will have physical therapy assess ambulation. Anticipate discharge back to assisted living or will need to consider skilled placement. Diabetes mellitus type 2: Will check A1c. Will provide sliding scale. Hypertension: Restart home medication. Dementia: Will monitor closely. Will verify long term medication. History of TIA: Continue with Plavix. Will provide DVT prophylaxis. Hyperlipidemia: Will hold statin medication due to rhabdomyolysis. Time Spent Managing Pts Care (In Minutes): 55
[2019-01-24 13:45] VITALS: O2SAT 94
[2019-01-24 16:51] LABS: Urine Protein/Creatinine Ratio 1.08 ratio (<0.15)
--- NOTE | 2019-01-24 20:12 | RAD REPORT ---
EXAM DESCRIPTION: US - Renal Ultrasound-Complete - 01/24/2019 7:22 pm CLINICAL HISTORY: Acute kidney injury COMPARISON: None. FINDINGS: The right kidney measures 8.9 x 4.1 x 4.1 cm. The left kidney measures 9.7 x 4.8 x 4.3 cm . Cortical wall thickness is normal. Echogenicity is increased consistent with medical renal disease. No hydronephrosis or suspicious renal mass. No bladder wall thickening or mass. No intraluminal stone or mass. IMPRESSION: Medical renal disease is evident. No hydronephrosis or mass lesion. No other significant findings.
[2019-01-25 06:13] LABS: Absolute Lymphocytes (CBC) 1.4 K/uL (0.7-4.9); Absolute Monocytes 0.9 K/uL (0.1-1.3); Absolute Neutrophil 5.9 K/uL (1.8-8.0); Basophils % 0.2 % (0-1.3); Eosinophils % 1.7 % (0-4.4); Hematocrit 32.4 % (36.0-45.0); Lymphocytes % 16.8 % (15.3-44.8); MPV 7.8 fL (7.6-11.3); Monocytes % 11.3 % (3.3-12.3); RBC Red Blood Cell Count 3.33 M/uL (3.86-4.86)
[2019-01-25 07:14] LABS: Magnesium 2.1 mg/dL (1.8-2.4); Potassium 4.2 mmol/L (3.5-5.1); Thyroid Stimulating Hormone 2.01 uIU/mL (0.360-3.740)
[2019-01-25] MEDS: INSULIN -REGULAR HUMAN 50 UNIT/0.5 ML ML SQ SCH ×4 (07:30→21:00)
[2019-01-25] MEDS: POLYVINYL ALCOHOL 1.4% 15 ML OPTH SCH ×2 (08:46→21:00)
[2019-01-25] MEDS: ASPIRIN EC 81 MG TAB PO SCH (08:47)
[2019-01-25] MEDS: DOCUSATE NA 100 MG CAP PO SCH (08:47)
[2019-01-25] MEDS: VITAMIN D 1000 UNIT TAB PO SCH (08:47)
[2019-01-25] MEDS: CLOPIDOGREL 75 MG TABLET PO SCH (08:47)
[2019-01-25] MEDS: SOLIFENACIN SUCCIN 5 MG TAB PO SCH (08:47)
[2019-01-25] MEDS: METOPROLOL XL 50 MG TAB PO SCH (08:47)
[2019-01-25] MEDS: CEFTRIAXONE/SWI 1gm 1 GM/10 ML SYR IV SCH (08:47)
--- NOTE | 2019-01-25 10:30 | P.PN ---
Subjective Date of Service: 01/25/19 Primary Care Provider: [facility] Chief Complaint: UTI, fall Subjective: Improving pt with Rosio and rhabdomyolysis Improved on IVF Cont IVF Abx for UTI Physical Examination - Vital Signs Temperature: 97.3 F Blood Pressure: 146/67 Pulse: 83 Respirations: 16 Pulse Ox (%): 96 - Physical Exam General: Alert, In no apparent distress HEENT: Atraumatic Neck: Supple, Without JVD or thyroid abnormality Respiratory: Clear to auscultation bilaterally Cardiovascular: No edema, Regular rate/rhythm, Normal S1 S2 Gastrointestinal: Normal bowel sounds, Soft and benign - Studies Microbiology Data (last 24 hrs): 01/23/19 21:35 Blood - Blood Anaerobic Blood Culture - Final 01/23/19 21:29 Blood - Blood Anaerobic Blood Culture - Final Medications List Reviewed: Yes Assessment And Plan - Current Problems (Diagnosis) (1) ROSIO (acute kidney injury) Current Visit: Yes Status: Acute (2) Rhabdomyolysis Current Visit: Yes Status: Acute Qualifiers: Rhabdomyolysis type: traumatic Encounter type: initial encounter Qualified Code(s): T79.6XXA - Traumatic ischemia of muscle, initial encounter (3) UTI (urinary tract infection) Current Visit: Yes Status: Acute Qualifiers: Urinary tract infection type: acute cystitis Hematuria presence: without hematuria Qualified Code(s): N30.00 - Acute cystitis without hematuria - Plan ROSIO likely due to poor oral intake +/_ diuresis +/- rhabdo improved on IVF UA +1 prot and Bld renal US: echogenic kidneys previous W/u RISHI, ANCA , RPR -ve cont IVF rhabdo Cont IVF improving Dementia will order TSH low b12 , will replaced DM as per PCP HTN controlled UTI cont Abx f/u culture results
[2019-01-25] MEDS: NA CHLORIDE 0.9% 1,000 ML IV SCH ×2 (11:00→17:18)
--- NOTE | 2019-01-25 12:37 | P.PN ---
Subjective Date of Service: 01/25/19 Primary Care Provider: [facility] Chief Complaint: UTI, fall Subjective: Improving Physical Examination - Vital Signs Temperature: 97.3 F Blood Pressure: 146/67 Pulse: 83 Respirations: 16 Pulse Ox (%): 96 - Physical Exam General: Alert, In no apparent distress, Demented HEENT: Atraumatic Neck: Supple Respiratory: Clear to auscultation bilaterally, Normal air movement Cardiovascular: Normal pulses, Regular rate/rhythm Gastrointestinal: Normal bowel sounds, Soft and benign, Non-distended Neurological: Normal speech, Normal strength at 5/5 x4 extr, Normal tone, Dementia - Studies Microbiology Data (last 24 hrs): 01/23/19 21:35 Blood - Blood Anaerobic Blood Culture - Final 01/23/19 21:29 Blood - Blood Anaerobic Blood Culture - Final Medications List Reviewed: Yes Assessment & Plan Discharge Plan: Other (correction facility versus returning back to assisted living facility) Plan to discharge in: 48 Hours Physician Review Additional Text: Impression: UTI complicated with acute on chronic renal disease, stage III, with rhabdomyolysis Fall with rhabdomyolysis Diabetes mellitus type 2 Hypertension Dementia History of TIA Hyperlipidemia Plan: UTI complicated with acute on chronic renal disease, stage III, with rhabdomyolysis: Continue with IV fluids. Case discussed with nephrology. Patient on IV antibiotic therapy for UTI. Await culture results. Continue monitor CPK. Renal function improved. Will discontinue Camarena catheter. Will have physical therapy and occupational therapy evaluate patient. Patient may require skilled placement at discharge verses returning back to the assisted living facility. Case discussed with son yesterday. Will keep him updated. Anticipate discharge in the next 48 hr. Fall with rhabdomyolysis: Will have physical therapy assess ambulation. Anticipate discharge back to assisted living or will need to consider skilled placement. Diabetes mellitus type 2: Will check A1c. Continue with sliding scale. Hypertension: Continue with medication. Will monitor and adjust appropriately. Dementia: Will monitor closely. Continue as above. History of TIA: Continue with Plavix. Will provide DVT prophylaxis. Hyperlipidemia: Will hold statin medication due to rhabdomyolysis. Time Spent Managing Pts Care (In Minutes): 55
[2019-01-26 05:45] LABS: Absolute Lymphocytes (CBC) 1.4 K/uL (0.7-4.9); Absolute Neutrophil 6.8 K/uL (1.8-8.0); Basophils % 0.3 % (0-1.3); Eosinophils % 2.3 % (0-4.4); Hematocrit 33.5 % (36.0-45.0); Lymphocytes % 14.7 % (15.3-44.8); MPV 7.4 fL (7.6-11.3); Monocytes % 10.8 % (3.3-12.3); RBC Red Blood Cell Count 3.43 M/uL (3.86-4.86)
[2019-01-26 06:00] LABS: Magnesium 2.1 mg/dL (1.8-2.4); Potassium 4.1 mmol/L (3.5-5.1)
[2019-01-26] MEDS: NA CHLORIDE 0.9% 1,000 ML IV SCH (07:00)
[2019-01-26] MEDS: INSULIN -REGULAR HUMAN 50 UNIT/0.5 ML ML SQ SCH ×2 (07:30→11:30)
[2019-01-26] MEDS ORDERED: LACTULOSE 20 GM/30 ML UCUP PO ONE (07:49)
[2019-01-26] MEDS: CLOPIDOGREL 75 MG TABLET PO SCH (08:49)
[2019-01-26] MEDS: METOPROLOL XL 50 MG TAB PO SCH (08:50)
[2019-01-26] MEDS: SOLIFENACIN SUCCIN 5 MG TAB PO SCH (08:51)
[2019-01-26] MEDS: VITAMIN D 1000 UNIT TAB PO SCH (08:51)
[2019-01-26] MEDS: ASPIRIN EC 81 MG TAB PO SCH (08:51)
[2019-01-26] MEDS: DOCUSATE NA 100 MG CAP PO SCH (08:51)
[2019-01-26] MEDS: CEFTRIAXONE/SWI 1gm 1 GM/10 ML SYR IV SCH (08:52)
[2019-01-26] MEDS: POLYVINYL ALCOHOL 1.4% 15 ML OPTH SCH (08:52)
[2019-01-26] MEDS ORDERED: CYANOCOBALAMIN 1000MCG/ML INJ SQ SCH (09:00)
--- NOTE | 2019-01-26 09:15 | P.DS ---
Admission Date: 01/23/19 Discharge Date: 01/26/19 Primary Care [facility]: [facility] Disposition: TRANSFER TO [facility] Discharge Condition: GOOD Reason for Admission: UTI, fall Consultations: Nephrology-Dr. Shaver Procedures: Renal US: COMPARISON: None. FINDINGS: The right kidney measures 8.9 x 4.1 x 4.1 cm. The left kidney measures 9.7 x 4.8 x 4.3 cm. Cortical wall thickness is normal. Echogenicity is increased consistent with medical renal disease. No hydronephrosis or suspicious renal mass. No bladder wall thickening or mass. No intraluminal stone or mass. IMPRESSION: Medical renal disease is evident. No hydronephrosis or mass lesion. No other significant findings. CT scan: COMPARISON: None FINDINGS: An intracranial bleed is not seen. A 3.5 centimeter low-density area within the left frontal lobe has the appearance of cystic encephalomalacia probably secondary to old infarction. The ventricles are normal in caliber. An extra-axial fluid collection is not noted. . Spondylosis involves the cervical spine Fluid within the sinuses/mastoids is not seen. A cervical fracture is not seen. No dislocation is noted. The evaluation of mediastinum, ralph, vessels, solid organs and bowel are limited secondary to the lack of contrast administration. A mediastinal hematoma is not noted. A pleural effusion is not seen. A lung contusion is not present. The liver,spleen, pancreas, adrenals,kidneys and bladder do not demonstrate a traumatic injury. IMPRESSION: 1. No acute intracranial abnormality is seen. 2. A cervical fracture is not visualized. If the patient continues have symptoms to suggest intracranial/spinal cord pathology MRI be recommended 3. No traumatic abnormality involving the chest/abdomen/pelvis. Xray, knee: COMPARISON: No comparisons FINDINGS: An acute fracture or dislocation is not seen. Small left knee joint effusion. Xray, hip: COMPARISON: No comparisons FINDINGS: Prominent degenerative changes seen involving the left hip. No evidence of fracture or dislocation. No aggressive marrow pattern. Medical Problem List: UTI, urine culture positive for E. coli, complicated with acute on chronic renal disease, stage III, with rhabdomyolysis Fall with rhabdomyolysis Left knee joint effusion with DJD of left hip Diabetes mellitus type 2 Hypertension Dementia History of TIA Hyperlipidemia Brief History of Present Illness: 88-year-old female presented to the emergency room after she was found on the ground at the assisted living facility. Patient was evaluated the emergency room. CT scan shows no fractures. Patient found to be febrile with UTI, dehydration and rhabdomyolysis. Patient was admitted for treatment. Hospital Course: Patient found on the ground with confusion, fever at the assisted living facility. Patient evaluated in the emergency room. Patient found to have UTI with acute on chronic renal disease and rhabdomyolysis. CT scan showed no fracture. X-ray of left knee showed small joint effusion and degenerative changes to the left hip. Urine culture positive for E coli. Patient was seen and evaluated by nephrology. Patient received IV fluids. Patient improved during the course of her stay. Renal function back to baseline. Patient back to her baseline mentation. Patient with underlying dementia, hypertension, diabetes, history of TIA, hyperlipidemia and chronic renal disease. At discharge patient will continue with Ceftin 250 mg 1 pill twice daily for 5 more days. UTI prevention education will be provided. Patient encouraged to increase oral intake as this has been a problem in the past. Recommend to follow up with Nephrology in 2-4 weeks to follow up this hospitalization. Recommend to recheck BMP in 1 week to follow her progress. Recommend no further use of nonsteroidal anti-inflammatories. Future medications will need to be renally dosed. Patient will continue with home health and physical therapy at discharge. Fall precautions will be provided. Patient with hypertension. Patient will continue with metoprolol XL 50 mg daily. Recommend to maintain blood pressures less 150/80. Further adjustment can be done by her PCP. Patient with history of TIA. Patient will continue with aspirin 81 mg daily and Plavix 75 mg daily. Patient with history of hyperlipidemia. In light of rhabdomyolysis will recommend to hold lovastatin for at least 2 weeks. Recommend to recheck CPK in 2 weeks. If within normal range then lovastatin can be restarted. Patient with dementia. Patient will continue her other medications. Patient with urinary incontinence. Patient may continue with VESIcare 10 mg daily. Patient with diabetes mellitus type 2. Will verify current medications at discharge. Recommend to maintain blood sugars less 140 fasting and less than 200 after meals. Further adjustment can be done by her PCP. Vital Signs/Physical Exam: Temp Pulse Resp BP Pulse Ox 97.9 F 90 18 171/77 H 97 01/26/19 08:00 01/26/19 08:50 01/26/19 08:00 01/26/19 08:50 01/26/19 08:00 General: Alert, In no apparent distress, Cooperative, Demented HEENT: Atraumatic Neck: Supple Respiratory: Clear to auscultation bilaterally, Normal air movement Cardiovascular: Normal pulses, Regular rate/rhythm Gastrointestinal: Normal bowel sounds, Soft and benign, Non-distended, No masses , No rebound, No guarding Musculoskeletal: No tenderness, No warmth Integumentary: No tenderness/swelling, No erythema Neurological: Normal speech, Normal strength at 5/5 x4 extr, Normal tone, Dementia Laboratory Data at Discharge: WBC 9.5 K/uL (4.3-10.9) 01/26/19 04:48 Hgb 11.3 g/dL (12.0-15.0) L 01/26/19 04:48 Hct 33.5 % (36.0-45.0) L 01/26/19 04:48 Plt Count 193 K/uL (152-406) 01/26/19 04:48 PT 11.9 SECONDS (9.5-12.5) 01/23/19 21:29 INR 1.01 01/23/19 21:29 Sodium 136 mmol/L (136-145) 01/26/19 04:48 Potassium 4.1 mmol/L (3.5-5.1) 01/26/19 04:48 BUN 15 mg/dL (7-18) 01/26/19 04:48 Creatinine 1.24 mg/dL (0.55-1.3) 01/26/19 04:48 Glucose 187 mg/dL (74-106) H 01/26/19 04:48 Magnesium 2.1 mg/dL (1.8-2.4) 01/26/19 04:48 Total Bilirubin 0.3 mg/dL (0.2-1.0) 01/23/19 21:29 AST 120 U/L (15-37) H 01/23/19 21:29 ALT 44 U/L (12-78) 01/23/19 21:29 Alkaline Phosphatase 79 U/L (45-117) 01/23/19 21:29 Lipase 76 U/L (73-393) 01/23/19 21:29 Home Medications: Acetaminophen 1 tab PO QID PRN 01/24/19 Aspirin [Aspirin EC 81 MG] 1 tab PO DAILY 01/24/19 Carboxymethylcellulos/Glycerin [Refresh Optive Eye Drops] 1 drop EACH EYE BID Cholecalciferol (Vitamin D3) [Vitamin D3] 1 cap PO DAILY 01/24/19 Clopidogrel Bisulfate [Plavix*] 1 tab PO DAILY 01/24/19 Docusate Calcium 240 mg PO BID 01/24/19 Lovastatin 1 tab PO DAILY 01/24/19 Meclizine HCl 1 tab PO BID 01/24/19 Metoprolol Succinate 1 tab PO DAILY 01/24/19 Solifenacin Succinate [Vesicare] 10 mg PO DAILY 01/24/19 Cefuroxime [Ceftin] 250 mg PO BID #10 tab 01/26/19 Furosemide [Lasix*] 1 tab PO DAILY PRN #30 tab 01/26/19 Potassium Chloride 1 tab PO SEECOM #30 tablet.er 01/26/19 New Medications: Cefuroxime [Ceftin] 250 mg PO BID #10 tab Furosemide [Lasix*] 1 tab PO DAILY PRN #30 tab PRN Reason: Shortness Of Breath Potassium Chloride 1 tab PO SEECOM #30 tablet.er Patient Discharge Instructions: 1. Patient to return to assisted living facility. 2. Patient found on the ground with confusion, fever at the assisted living facility. Patient evaluated in the emergency room. Patient found to have UTI with acute on chronic renal disease and rhabdomyolysis. CT scan showed no fracture. X-ray of left knee showed small joint effusion and degenerative changes to the left hip. Urine culture positive for E coli. Patient was seen and evaluated by nephrology. Patient received IV fluids. Patient improved during the course of her stay. Renal function back to baseline. Patient back to her baseline mentation. Patient with underlying dementia, hypertension, diabetes, history of TIA, hyperlipidemia and chronic renal disease. At discharge patient will continue with Ceftin 250 mg 1 pill twice daily for 5 more days. UTI prevention education will be provided. Patient encouraged to increase oral intake as this has been a problem in the past. Recommend to follow up with Nephrology in 2-4 weeks to follow up this hospitalization. Recommend to recheck BMP in 1 week to follow her progress. Recommend no further use of nonsteroidal anti-inflammatories. Future medications will need to be renally dosed. Patient will continue with home health and physical therapy at discharge. Fall precautions will be provided. 3. Patient with hypertension. Patient will continue with metoprolol XL 50 mg daily. Recommend to maintain blood pressures less 150/80. Further adjustment can be done by her PCP. 4. Patient with history of TIA. Patient will continue with aspirin 81 mg daily and Plavix 75 mg daily. 5. Patient with history of hyperlipidemia. In light of rhabdomyolysis will recommend to hold lovastatin for at least 2 weeks. Recommend to recheck CPK in 2 weeks. If within normal range then lovastatin can be restarted. 6. Patient with dementia. Patient will continue her other medications. 7. Patient with urinary incontinence. Patient may continue with VESIcare 10 mg daily. 8. Patient with diabetes mellitus type 2. Will verify current medications at discharge. Recommend to maintain blood sugars less 140 fasting and less than 200 after meals. Further adjustment can be done by her PCP. Diet: Renal Activity: Fall precautions Time spent managing pt's care (in minutes): 55
[2019-01-26 13:04] VITALS: BP 139/88; TEMP 97.6
--- NOTE | 2019-01-26 15:48 | PN ---
Date of Progress Note: 01/26/2019 Chief Complaint: Acute kidney injury, moderately severe, nonoliguric secondary to rhabdomyolysis and prerenal azotemia. Subjective: The patient is responding to IV fluids. The patient completed IV fluids and renal funct ion has improved. The patient denies myalgia. The patient is treated for urinary tract infection wi th antibiotics. Review of Systems: Lungs: Denies PND or orthopnea. Cardiovascular: Denies chest pain or palpitation. GI: Denies nausea or vomiting. : Denies hematuria or dysuria. Physical Examination: Vital Signs: Blood pressure 120/70, heart rate 80, temperature is 97.3. Neck: Supple. No JVD. Lungs: Clear to auscultation bilaterally. Cardiovascular: S1 and S2. No pericardial friction rub. Abdomen: Soft and benign. Extremities: No edema. Impression And Plan: 1.Acute kidney injury in recovery phase. Continue to monitor electrolytes closely. Check magnesium and phosphorus, replacement will be ordered accordingly. 2.Rhabdomyolysis. Monitor CK level. 3.Acute kidney injury. The patient responded to IV fluids. Renal function has improved. 4.Anemia, mild. There is no evidence of bleeding. 5.Diabetes mellitus. Blood glucose is elevated, improving with adjustment of insulin. Hemoglobin A 1c is pending. 6.Renal function has improved. On admission creatinine was 1.79 and today creatinine is 1.24. CK level was 4079 yesterday. CK level improved to 1500 range. Monitor CK level and continue IV fluids. REI/CATARINA Voice ID: [id number] Report ID: [id number]
== END 2019-01-26 15:20 | disposition home health service (06) | DRG 690 ==
LOC: ER 19:22 → ERHOLD 23:11 → 2ND 01-24 00:09
PROVIDERS: ADMIT Internal Medicine; ATTEND Family Medicine
DX: N30.00 Acute cystitis without hematuria (principal); G93.40 Encephalopathy, unspecified; N17.9 Acute kidney failure, unspecified; B96.20 Unspecified Escherichia coli [E. coli] as the cause of diseases classified elsewhere; I12.9 Hypertensive chronic kidney disease with stage 1 through stage 4 chronic kidney disease, or unspecified chronic kidney disease; E11.22 Type 2 diabetes mellitus with diabetic chronic kidney disease; N18.3 Chronic kidney disease, stage 3 (moderate); G30.9 Alzheimer's disease, unspecified; F02.80 Dementia in other diseases classified elsewhere, unspecified severity, without behavioral disturbance, psychotic disturbance, mood disturbance, and anxiety; T79.6XXA Traumatic ischemia of muscle, initial encounter; W19.XXXA Unspecified fall, initial encounter; E78.2 Mixed hyperlipidemia; I25.10 Atherosclerotic heart disease of native coronary artery without angina pectoris; E53.8 Deficiency of other specified B group vitamins; R32 Unspecified urinary incontinence; D64.9 Anemia, unspecified; M25.462 Effusion, left knee; M16.12 Unilateral primary osteoarthritis, left hip; G25.81 Restless legs syndrome; Z23 Encounter for immunization; Z79.82 Long term (current) use of aspirin; Z86.73 Personal history of transient ischemic attack (TIA), and cerebral infarction without residual deficits
CPT/HCPCS: 36415; 51702; 70450; 71045; 71250; 72125; 76770; 80048; 80076; 81003; 82550; 82553; 82570; 82607; 82962; 83036; 83605; 83690; 83735; 83880; 84145; 84156; 84443; 84484; 85025; 85610; 87040; 87077; 87086; 87088; 87186; 87804; 90670; 93005; 96361; 96374; 97116; 97163; 97166; 97530; 99285; G0009; J0696; J3420; J7030

== ENCOUNTER 2019-06-22 19:36 | Emergency (ER) | payer OTHER, MEDICARE ==
--- NOTE | 2019-06-22 20:32 | RAD REPORT ---
EXAM DESCRIPTION: CT - Head C Spine Mpr Wo Con - 06/22/2019 8:13 pm CLINICAL HISTORY: Head and neck injury status post fall. Head and neck pain COMPARISON: January 2019 TECHNIQUE: Computed axial tomography of the head and cervical spine was obtained. Sagittal and coronal reconstruction was performed. All CT scans are performed using dose optimization technique as appropriate and may include automated exposure control or mA/KV adjustment according to patient size. FINDINGS: Right parietal scalp hematoma Old left cerebral infarction An intracranial bleed is not seen. The ventricles are normal in caliber. An extra-axial fluid collect ion is not noted.Fluid within the visualized sinuses and mastoids is not seen A cervical fracture is not visualized. No dislocation is noted. Spondylosis involves the cervical spi ne resulting in mild to moderate central spinal stenosis IMPRESSION: No acute intracranial abnormality is seen. A cervical fracture is not visualized. If the patient continues to have symptoms to suggest intracra nial /spinal cord pathology then MRI would be recommended
--- NOTE | 2019-06-22 20:44 | RAD REPORT ---
EXAM DESCRIPTION: RAD - Pelvis - 06/22/2019 8:32 pm CLINICAL HISTORY: Pelvic pain status post injury FINDINGS: No fracture or dislocation is seen. Osteoporosis If the patient continues to have symptoms to suggest an occult fracture then MRI would be recommended
--- NOTE | 2019-06-22 20:44 | RAD REPORT ---
EXAM DESCRIPTION: RAD - Hip Left 2 View - 06/22/2019 8:32 pm CLINICAL HISTORY: Left hip pain status post injury FINDINGS: No fracture or dislocation is seen. Osteoporosis If the patient continues to have symptoms to suggest an occult fracture then MRI would be recommended
--- NOTE | 2019-06-22 20:50 | RAD REPORT ---
EXAM DESCRIPTION: RAD - Tib Fib Right - 06/22/2019 8:43 pm CLINICAL HISTORY: Right leg pain FINDINGS: No fracture is seen. Osteoporosis Possible ankle effusion
--- NOTE | 2019-06-22 21:21 | EDPHYS ---
Physician Documentation [facility] Name: Cheri Swift Age: 88 yrs Sex: Female : 1930 Arrival Date: 06/22/2019 Time: 19:41 Bed 16 Private MD: ED Physician Sadi Sue HPI: 06/22 20:00 This 88 yrs old Female presents to ER via EMS with complaints of Fall Injury. cp 20:00 Details of fall: The patient fell from an upright position. cp 20:00 Onset: The symptoms/episode began/occurred today. Associated injuries: The patient cp sustained injury to the head, hematoma, swelling, tenderness. 20:00 Patient is a resident of [facility] and intermediate staff reported patient fell while cp walking today. 20:00 Unable to obtain HPI due to baseline dementia. cp Historical: - Allergies: 19:58 ambien; ea 19:58 Bactrim; ea 19:58 duratuss; ea 19:58 Lamisil; ea 19:58 Lisinopril; ea 19:58 metformin; ea 19:58 Requip; ea 19:58 Sulfa (Sulfonamide Antibiotics); ea 19:58 Vitamin D; ea 19:58 Zithromax; ea - Home Meds: 19:58 Vesicare 10 mg Oral tab 1 tab once daily [Active]; potassium chloride 10 mEq Oral cpER ea 1 cap once daily [Active]; aspirin 81 mg Oral chew 1 tab once daily [Active]; clopidogrel 75 mg Oral tab 1 tab once daily [Active]; docusate calcium 240 mg Oral cap 1 cap 2 times per day [Active]; furosemide 20 mg Oral tab 1 tab once daily [Active]; lovastatin 20 mg Oral tab 1 tab once daily [Active]; meclizine 25 mg Oral tab 1 tab 2 times per day [Active]; metoprolol succinate 50 mg Oral Tb24 1 tab once daily [Active]; - PMHx: 19:58 Dementia; Diabetes - NIDDM; kidney disease; TIA; ea - Immunization history:: Adult Immunizations up to date. - Social history:: Smoking status: Patient/guardian denies using tobacco. - Immunization history: Last tetanus immunization: unknown. - Ebola Screening: : No symptoms or risks identified at this time. ROS: 20:05 Constitutional: Negative for fever. cp 20:05 Cardiovascular: Negative for chest pain. cp 20:05 Respiratory: Negative for wheezing. 20:05 Abdomen/GI: Negative for abdominal pain. 20:05 Neuro: Negative for altered mental status. 20:05 Unable to obtain ROS due to baseline dementia. Exam: 22:28 Constitutional: The patient appears in no acute distress, alert, awake, cp non-diaphoretic, non-toxic, well developed, well nourished. 22:28 Head/face: Noted is hematoma, that is mild, of the right side of the back of head, swelling, that is mild, of the right side of the back of head, tenderness, that is mild, of the right side of the back of head. 22:28 Eyes: Periorbital structures: appear normal, Pupils: equal, round, and reactive to light and accomodation, Conjunctiva: normal, no exudate, no injection, Sclera: no appreciated abnormality, Lids and lashes: appear normal, bilaterally. 22:28 ENT: External ear(s): are unremarkable, Nose: is normal, Mouth: is normal, Posterior pharynx: Airway: no evidence of obstruction, patent. 22:28 Neck: C-spine: vertebral tenderness, is not appreciated, crepitus, is not appreciated, ROM/movement: is normal, is supple, without pain, no range of motions limitations, no nuchal rigidity. 22:28 Chest/axilla: Inspection: normal, Palpation: is normal, no crepitus, no tenderness. 22:28 Cardiovascular: Rate: normal, Edema: is not appreciated, JVD: is not appreciated. 22:28 Respiratory: the patient does not display signs of respiratory distress, Respirations: normal, no use of accessory muscles, no retractions, no splinting, no tachypnea, labored breathing, is not present. 22:28 Abdomen/GI: Inspection: abdomen appears normal, Bowel sounds: active, all quadrants, Palpation: abdomen is soft and non-tender, in all quadrants. 22:28 Back: vertebral tenderness, is not appreciated. Vital Signs: 19:52 BP 150 / 79; Pulse 86; Resp 18; Temp 98.2; Pulse Ox 98% on R/A; Weight 68.04 kg; Height ea 5 ft. 1 in. (154.94 cm); Pain 0/10; 20:00 BP 144 / 77; Pulse 76; Resp 18; Pulse Ox 98% on R/A; ea 21:11 BP 135 / 81; Pulse 81; Resp 18; Temp 98; Pulse Ox 97% ; ea 19:52 Body Mass Index 28.34 (68.04 kg, 154.94 cm) ea Sligo Coma Score: 19:52 Eye Response: spontaneous(4). Verbal Response: confused(4). Motor Response: obeys ea commands(6). Total: 14. 20:00 Eye Response: spontaneous(4). Verbal Response: confused(4). Motor Response: obeys ea commands(6). Total: 14. 21:11 Eye Response: spontaneous(4). Verbal Response: confused(4). Motor Response: obeys ea commands(6). Total: 14. Trauma Score (Adult): 19:52 Eye Response: spontaneous(1); Verbal Response: confused(1); Motor Response: obeys ea commands(2); Systolic BP: > 89 mm Hg(4); Respiratory Rate: 10 to 29 per min(4); Sligo Score: 14; Trauma Score: 12 MDM: 19:[address] [facility] 21:19 Data reviewed: vital signs, nurses notes, radiologic studies, CT scan, plain films. 21:19 Counseling: I had a detailed discussion with the patient and/or guardian regarding: the cp historical points, exam findings, and any diagnostic results supporting the discharge/admit diagnosis, radiology results, to return to the emergency department if symptoms worsen or persist or if there are any questions or concerns that arise at home. 06/22 19:56 Order name: XRAY Pelvis; Complete Time: 21:17 06/22 21:18 Interpretation: Report reviewed. 06/22 19:56 Order name: CT Head C Spine; Complete Time: 21:17 06/22 21:18 Interpretation: Reviewed report. 06/22 19:56 Order name: XRAY Hip LEFT 2 view; Complete Time: 21:17 06/22 21:18 Interpretation: Report reviewed. 06/22 19:56 Order name: XRAY Tib Fib RIGHT; Complete Time: 21:17 06/22 21:18 Interpretation: Report reviewed. cp Administered Medications: No medications were administered Disposition: 22:31 Chart complete. cp Disposition: 06/22/19 21:20 Discharged to Home. Impression: Contusion of scalp - with hematoma, Pain in left hip, Pain in right lower leg. - Condition is Stable. - Discharge Instructions: Head Injury, Adult, Musculoskeletal Pain. - Medication Reconciliation Form, Thank You Letter, Antibiotic Education, Prescription Opioid Use form. - Follow up: Private Physician; When: 1 - 2 days; Reason: Recheck today's complaints. - Problem is new. - Symptoms have improved. Addendum: 06/25/2019 14:50 Co-signature as Attending Physician, Sadi Sue MD. g s Signatures: Dispatcher [employer] EDMS Jose Hilton MD MD cha Page, Corey, PA PA cp Hamida Bermudez, RN RN Sadi Chao MD MD gs Corrections: (The following items were deleted from the chart) 06/22 20:47 20:45 This 88 yrs old Female presents to ER via EMS with complaints of Fall cp Injury. cp 21:51 21:20 06/22/2019 21:20 Discharged to Home. Impression: Contusion of scalp - with ea hematoma; Pain in left hip; Pain in right lower leg. Condition is Stable. Forms are Medication Reconciliation Form, Thank You Letter, Antibiotic Education, Prescription Opioid Use. Follow up: Private Physician; When: 1 - 2 days; Reason: Recheck today's complaints. Problem is new. Symptoms have improved. cp
--- NOTE | 2019-06-22 21:21 | ER ---
Nurse's Notes [facility] Name: Cheri Swift Age: 88 yrs Sex: Female : 1930 Arrival Date: 06/22/2019 Time: 19:41 Bed 16 Private MD: Diagnosis: Contusion of scalp-with hematoma;Pain in left hip;Pain in right lower leg Presentation: 06/22 19:43 Presenting complaint: EMS states: Pt coming from [facility], staff reported they believe ea pt tripped and fell, pt denied LOC. EMS reports a hematoma on the back of her head. Care prior to arrival: BP: 116/90. Mechanism of Injury: Fall. Trauma event details: Injury occurred in the [facility], Injury occurred: [facility] Injury occurred: June 22, 2019 Injury occurred at: 19:03. 19:43 Acuity: ALFREDO 3 ea 19:43 Method Of Arrival: EMS: [facility] ea 20:00 Transition of care: [facility]. Onset of symptoms was June 22, 2019. Risk ea Assessment: Do you want to hurt yourself or someone else? Patient reports no desire to harm self or others. Initial Sepsis Screen: Does the patient meet any 2 criteria? No. Patient's initial sepsis screen is negative. Does the patient have a suspected source of infection? No. Patient's initial sepsis screen is negative. Trauma Activation: Alert Physician: ED Physician; Name: ; Notified At: ; Arrived At: Physician: General Surgeon; Name: ; Notified At: ; Arrived At: Physician: Radiology; Name: ; Notified At: ; Arrived At: Physician: Respiratory; Name: ; Notified At: ; Arrived At: Physician: Lab; Name: ; Notified At: ; Arrived At: Historical: - Allergies: 19:58 ambien; ea 19:58 Bactrim; ea 19:58 duratuss; ea 19:58 Lamisil; ea 19:58 Lisinopril; ea 19:58 metformin; ea 19:58 Requip; ea 19:58 Sulfa (Sulfonamide Antibiotics); ea 19:58 Vitamin D; ea 19:58 Zithromax; ea - Home Meds: 19:58 Vesicare 10 mg Oral tab 1 tab once daily [Active]; potassium chloride 10 mEq Oral cpER ea 1 cap once daily [Active]; aspirin 81 mg Oral chew 1 tab once daily [Active]; clopidogrel 75 mg Oral tab 1 tab once daily [Active]; docusate calcium 240 mg Oral cap 1 cap 2 times per day [Active]; furosemide 20 mg Oral tab 1 tab once daily [Active]; lovastatin 20 mg Oral tab 1 tab once daily [Active]; meclizine 25 mg Oral tab 1 tab 2 times per day [Active]; metoprolol succinate 50 mg Oral Tb24 1 tab once daily [Active]; - PMHx: 19:58 Dementia; Diabetes - NIDDM; kidney disease; TIA; ea - Immunization history:: Adult Immunizations up to date. - Social history:: Smoking status: Patient/guardian denies using tobacco. - Immunization history: Last tetanus immunization: unknown. - Ebola Screening: : No symptoms or risks identified at this time. Screenin:51 Abuse screen: Denies threats or abuse. Nutritional screening: No deficits noted. ea Tuberculosis screening: No symptoms or risk factors identified. Fall Risk Fall in past 12 months (25 points). Primary Survey: 19:51 NO uncontrolled hemorrhage observed. A: The patient is alert. Airway: patent. ea Breathing/Chest: Respiratory pattern: regular, Respiratory effort: spontaneous, Breath sounds: clear. Circulation: Skin color: pink, Skin temperature: warm. Disability Alert. Exposure/Environment: There is no evidence of uncontrolled external bleeding. A warming method has been applied: A warm blanket has been provided to the patient. 20:42 Reassessment Breathing/Chest Respiratory pattern Regular Respiratory effort Spontaneous ea Unlabored. Secondary Survey: 19:50 Injury Description: hematoma to back of head. ea Assessment: 19:54 General: Appears in no apparent distress. Behavior is appropriate for age. Pain: Denies ea pain. Neuro: Level of Consciousness is awake, alert, obeys commands, Oriented to person, place, EMS reported pt at baseline orientation to self and sometimes place. EENT: No signs and/or symptoms were reported regarding the EENT system. Cardiovascular: Patient's skin is warm and dry. Respiratory: Airway is patent Respiratory effort is even, unlabored, Respiratory pattern is regular, symmetrical. Derm: Skin is pink, warm \T\ dry. 20:40 Reassessment: Patient and/or family updated on plan of care and expected duration. Pain ea level reassessed. Pt resting with eyes closed, respirations even and unlabored. Chest expansions even and symmetrical. 21:09 Reassessment: Patient and/or family updated on plan of care and expected duration. Pain ea level reassessed. Pt alert and oriented to self and place. Respirations even and unlabored. Chest expansions even and symmetrical. No s/s of pain or discomfort noted at this time. 21:50 Reassessment: Patient and/or family updated on plan of care and expected duration. Pain ea level reassessed. Pt alert and oriented to self and place. Respirations even and unlabored. Chest expansions even and symmetrical. No s/s of pain or discomfort noted at this time. Discharge instruction given to pt's son, pt left ED accompanied by son per wheelchair, pt tolerating well. Pt assisted to private vehicle, pt tolerated well. Vital Signs: 19:52 BP 150 / 79; Pulse 86; Resp 18; Temp 98.2; Pulse Ox 98% on R/A; Weight 68.04 kg; Height ea 5 ft. 1 in. (154.94 cm); Pain 0/10; 20:00 BP 144 / 77; Pulse 76; Resp 18; Pulse Ox 98% on R/A; ea 21:11 BP 135 / 81; Pulse 81; Resp 18; Temp 98; Pulse Ox 97% ; ea 19:52 Body Mass Index 28.34 (68.04 kg, 154.94 cm) ea [place] Coma Score: 19:52 Eye Response: spontaneous(4). Verbal Response: confused(4). Motor Response: obeys ea commands(6). Total: 14. 20:00 Eye Response: spontaneous(4). Verbal Response: confused(4). Motor Response: obeys ea commands(6). Total: 14. 21:11 Eye Response: spontaneous(4). Verbal Response: confused(4). Motor Response: obeys ea commands(6). Total: 14. Trauma Score (Adult): 19:52 Eye Response: spontaneous(1); Verbal Response: confused(1); Motor Response: obeys ea commands(2); Systolic BP: > 89 mm Hg(4); Respiratory Rate: 10 to 29 per min(4); [place] Score: 14; Trauma Score: 12 ED Course: 19:41 Patient arrived in ED. aa1 19:42 Jose Alves PA is PHCP. cp 19:42 Sadi Sue MD is Attending Physician. cp 19:43 Hamida Bermudez, RN is Primary Nurse. ea 19:50 Patient placed in an exam room, on a stretcher, on pulse oximetry. ea 19:51 Triage completed. ea 19:51 Patient maintains SpO2 saturation greater than 95% on room air. Thermoregulation: warm ea blanket given to patient. 19:53 Patient has correct armband on for positive identification. Bed in low position. Call ea light in reach. 20:14 CT Head C Spine In Process Unspecified. EDMS 20:33 XRAY Pelvis In Process Unspecified. EDMS 20:33 XRAY Hip LEFT 2 view In Process Unspecified. EDMS 20:43 XRAY Tib Fib RIGHT In Process Unspecified. EDMS 21:22 No provider procedures requiring assistance completed. Patient did not have IV access ea during this emergency room visit. Administered Medications: No medications were administered Intake: 21:22 PO: 0ml; Total: 0ml. ea Outcome: 21:20 Discharge ordered by MD. cp 21:50 Discharged to [facility] accompanied by son. Pt assisted to private vehicle ea 21:50 Condition: stable 21:50 Discharge instructions given to family, Instructed on discharge instructions, follow up and referral plans. Demonstrated understanding of instructions, follow-up care. 21:51 Patient's length of stay was not longer than 2 hours. ea 21:51 Patient left the ED. ea Signatures: Dispatcher [employer] EDMariela Apple RN RN aa1 Jose Alves PA PA cp Hamida Bermudez, RN RN ea Corrections: (The following items were deleted from the chart) 21:22 21:11 BP 135 / 81; Pulse 81bpm; Resp 18bpm; Pulse Ox 79%; Temp 98F; ea ea
[2019-06-22 22:08] VITALS: BP 135/81; TEMP 98; O2SAT 97
== END 2019-06-22 21:51 | disposition home or self-care (01) ==
LOC: ER 19:36
DX: S00.03XA Contusion of scalp, initial encounter (principal); M25.552 Pain in left hip; M79.661 Pain in right lower leg; E11.9 Type 2 diabetes mellitus without complications; F03.90 Unspecified dementia, unspecified severity, without behavioral disturbance, psychotic disturbance, mood disturbance, and anxiety; W19.XXXA Unspecified fall, initial encounter; Y93.01 Activity, walking, marching and hiking; Y92.099 Unspecified place in other non-institutional residence as the place of occurrence of the external cause; Z79.82 Long term (current) use of aspirin; Z88.1 Allergy status to other antibiotic agents; Z88.2 Allergy status to sulfonamides; Z88.8 Allergy status to other drugs, medicaments and biological substances; Z91.048 Other nonmedicinal substance allergy status
CPT/HCPCS: 70450; 72125; 72170; 99284